=== PATIENT | female | born 1955 | race Caucasian/White ===

== ENCOUNTER 2018-04-01 09:27 | Outpatient (CLI) | payer OTHER | END 2018-04-01 09:28 | disposition home or self-care (01) | LOC: BICMAMMO 09:27 | PROVIDERS: ATTEND Family Medicine | DX: Z12.31 Encounter for screening mammogram for malignant neoplasm of breast (principal); M81.0 Age-related osteoporosis without current pathological fracture; R92.1 Mammographic calcification found on diagnostic imaging of breast; M85.89 Other specified disorders of bone density and structure, multiple sites | CPT/HCPCS: 77063; 77067; 77080 ==

== ENCOUNTER 2018-05-31 22:02 | Inpatient (IN) | payer OTHER ==
[2018-05-31 23:34] LABS: #Basophils 0.1 thou/uL (0.0-0.2); #Lymphocytes 1.5 thou/uL (1.20-3.40); #Monocytes 0.7 thou/uL (0.11-0.59); %Basophils 0.6 % (0.0-1.0); %Eosinophils 0.3 % (0.0-10.0); %Lymphocytes 12.3 % (21.0-51.0); %Monocytes 5.9 % (0.0-10.0); Hemoglobin 13.4 g/dL (12.0-16.0); Mean Corpuscular HGB CONC 34.6 g/dL (32.0-36.0); Mean Corpuscular Hemoglobin 29.9 pg (27.0-31.0); Mean Corpuscular Volume 86.6 fL (78.0-98.0); Mean Platelet Volume 7.8 fL (7.4-10.4); Platelet Count 203 thou/uL (130-400); RBC Distribution Width 12.2 % (11.5-14.5); Red Blood Cell (RBC) Count 4.48 mill/uL (4.20-5.40); White Blood Cell (WBC) Count 12.3 thou/uL (4.8-10.8)
--- NOTE | 2018-05-31 23:35 | RAD ---
LEFT FOREARM TWO VIEWS: 05/31/18 HISTORY: Left arm injury. FINDINGS: Extensively comminuted multiplane fracture of the distal radial shaft is present with one half shaft width medial displacement of the major distal fragment and apex medial angulation. Significant shorte jayde of the radius. Mildly displaced ulnar styloid avulsion. Radiocarpal joint is maintained although there is dissociation of the carpus from the ulna. IMPRESSION: Fracture dislocation distal left forearm as detailed above. POS: [facility]
--- NOTE | 2018-05-31 23:37 | RAD ---
CHEST ONE VIEW: 05/31/18 HISTORY: Arm fracture. Preop. FINDINGS: The cardiac silhouette magnified by projection. Pulmonary vasculature is unremarkable. Mediastinum is midline with postoperative change. No lobar consolidation or evidence of pneumothorax. IMPRESSION: No active cardiopulmonary abnormalities are demonstrated. POS: [facility]
[2018-05-31 23:41] LABS: Prothrombin Time 12.8 SEC (12.0-14.7)
[2018-05-31 23:55] LABS: ALT (SGPT) 18 U/L (8-55); AST (SGOT) 18 U/L (5-34); Alkaline Phosphatase 56 U/L (40-150); Anion Gap 17 mmol/L (10-20); BUN (Urea Nitrogen) 17 mg/dL (9.8-20.1); Bilirubin, Total 0.4 mg/dL (0.2-1.2); Calc. Creatinine Clearance 0 mL/min (70-130); Carbon Dioxide 15 mmol/L (23-31); Chloride 112 mmol/L (98-107); Estimated GFR-MDRD 67; Globulin 2.4 g/dL (2.4-3.5); Glucose 114 mg/dL (80-115); Potassium 3.9 mmol/L (3.5-5.1); Protein, Total 6.4 g/dL (6.0-8.3); Sodium 140 mmol/L (136-145)
[2018-05-31] MEDS ORDERED: traMADol HCl 50 MG TAB PO PRN (23:57)
[2018-05-31 23:58] LABS: CKMB 2.2 ng/mL (0-6.6)
[2018-05-31] MEDS ORDERED: Ondansetron HCl/PF 4 MG/2 ML Vial IVP PRN (23:58)
[2018-05-31] MEDS ORDERED: Dextrose 50% Abboject 50 ML SYRINGE SLOW IVP PRN (23:58)
[2018-05-31] MEDS ORDERED: Dextrose 5% in Water 1,000 ML IV PRN (23:58)
[2018-05-31] MEDS ORDERED: Ondansetron ODT 4 MG TAB PO PRN (23:58)
[2018-06-01] MEDS ORDERED: hydrALAZINE 20 MG/ML VIAL SLOW IVP PRN (00:03)
[2018-06-01 00:04] LABS: Troponin I Less than 0.010 ng/mL (< 0.028)
[2018-06-01] MEDS ORDERED: Morphine 4 MG/ML VIAL ONE (00:21)
[2018-06-01] MEDS: Sodium Chloride 0.9% 1,000 ML IV SCH ×2 (01:20→14:32)
[2018-06-01 01:54] VITALS: BMI 21.9
[2018-06-01] MEDS: traMADol HCl 50 MG TAB PO SCH ×4 (05:55→23:39)
[2018-06-01] MEDS: Ketorolac Tromethamine 30 MG/ML VIAL IVP SCH ×3 (05:57→17:20)
[2018-06-01] MEDS: Acetaminophen 1,000 MG in Premix Bag 1 BAG IVPB SCH ×3 (05:57→17:20)
--- NOTE | 2018-06-01 06:23 | HP ---
DATE OF ADMISSION: 06/01/2018 ATTENDING PHYSICIAN: Dr. Sumeet Licona. TRAUMA ACTIVATION: Not applicable. HISTORY OF PRESENT ILLNESS: This is a 63-year-old female who presented to [place] status post injury involving livestock. Per patient, she was closed in her cow pen, when cow got pushed up again st her hand/wrist trapping it between the pen and the cow. She had immediate onset of left upper ext remity deformity and pain. She was evaluated at an outside facility and transferred to [place] for an open distal left radius fracture. Orthopedic Surgery was notified and Trauma Services was as ked to admit. Upon my evaluation, patient has a chief complaint of left upper extremity pain. She d enies trauma or pain anywhere else. ALLERGIES: None. PAST MEDICAL HISTORY: Coronary artery disease, status post bypass, hypertension, hyperlipidemia, ost eoporosis, and GERD. PAST SURGICAL HISTORY: Significant for two-vessel CABG, hysterectomy, and x3. HOME MEDICATIONS: Include aspirin 81 mg p.o. daily, Boniva 150 mg 1 tab monthly, lisinopril 5 mg p.o . nightly, pantoprazole 40 mg b.i.d., Crestor 20 mg p.o. daily. SOCIAL HISTORY: Patient is a rancher and a medical office receptionist. She lives at home with her . She e ndorses occasional alcohol use. Denies tobacco or illicit drug use. FAMILY HISTORY: Significant for father with CAD, hypertension, and CVA. REVIEW OF SYSTEMS: A 10-point review of systems was obtained and essentially negative except as vignesh cated in the HPI. PHYSICAL EXAMINATION: VITAL SIGNS: Temperature 98.0, pulse 68, respiration rate 18, O2 sat 97% on room air, blood pressure 156/75. GENERAL: Well-developed female in no acute distress, resting in bed. HEAD: Normocephalic, atraumatic. EYES: Pupils are PERRL. Extraocular movements are intact. NECK: Supple. Trachea is midline. CHEST: Atraumatic, nontender to palpation. Normal work of breathing, symmetric rise. LUNGS: Clear to auscultation bilaterally. CARDIOVASCULAR: Regular rate and rhythm. GASTROINTESTINAL: Abdomen is atraumatic, soft, nontender, nondistended, bowel sounds are positive. MUSCULOSKELETAL AND BACK: Reported as being within normal limits. EXTREMITIES: Right upper extremity within normal limits. Bilateral lower extremities within normal limits. Left upper extremity wrist is grossly deformed with a 1 cm punctate laceration on the latera l aspect of the left wrist with venous ooze. NEUROLOGIC: GCS is 15. No focal deficit is noted. LABORATORY FINDINGS: WBC 12.3, hemoglobin 13.4, hematocrit 38.8, platelet count 203. INR is 1.0. C hemistry and cardiac enzymes are pending. EKG is pending. RADIOLOGIC FINDINGS: X-ray of the chest was without acute cardiopulmonary process and demonstrated e vidence of history of CABG. X-ray of the left forearm demonstrated distal left radial fracture with ulnar styloid avulsion fracture. ASSESSMENT: 1. Status post left upper extremity trauma secondary to livestock. 2. Open left distal radius fracture. 3. Acute traumatic pain. 4. History of coronary artery disease, status post bypass. 5. History of hypertension. 6. History of osteoporosis. 7. History of gastroesophageal reflux disease. PLAN: Admit to Trauma Services. Patient will be n.p.o. after midnight, I have spoken with Dr. Ingrid gil who plans for operative intervention tomorrow. Pain controlled via p.o. and IV analgesics. Pos toperative PT, OT. Deep venous thrombosis and gastritis prophylaxis as appropriate. Plan for admiss ion were discussed with the patient, who vocalized her understanding. All questions were answered at the time of this dictation. Trauma attending has been notified of admission.
[2018-06-01 06:25] LABS: #Lymphocytes 1.7 thou/uL (1.20-3.40); #Monocytes 0.8 thou/uL (0.11-0.59); #Neutrophils 7.1 thou/uL (1.40-6.50); %Basophils 0.4 % (0.0-1.0); %Eosinophils 0.2 % (0.0-10.0); %Lymphocytes 17.3 % (21.0-51.0); %Monocytes 8.3 % (0.0-10.0); %Neutrophils 73.7 % (42.0-75.0); Hemoglobin 12.2 g/dL (12.0-16.0); Mean Corpuscular HGB CONC 34.1 g/dL (32.0-36.0); Mean Corpuscular Hemoglobin 29.4 pg (27.0-31.0); Mean Corpuscular Volume 86.1 fL (78.0-98.0); Mean Platelet Volume 8.4 fL (7.4-10.4); Platelet Count 197 thou/uL (130-400); Red Blood Cell (RBC) Count 4.14 mill/uL (4.20-5.40); White Blood Cell (WBC) Count 9.7 thou/uL (4.8-10.8)
[2018-06-01 06:45] LABS: Anion Gap 12 mmol/L (10-20); BUN (Urea Nitrogen) 14 mg/dL (9.8-20.1); Calc. Creatinine Clearance 75 mL/min (70-130); Calcium 8.6 mg/dL (7.8-10.44); Carbon Dioxide 18 mmol/L (23-31); Chloride 112 mmol/L (98-107); Estimated GFR-MDRD 75; Glucose 108 mg/dL (80-115); Magnesium 1.9 mg/dL (1.6-2.6); Phosphorus 3.3 mg/dL (2.3-4.7); Potassium 3.9 mmol/L (3.5-5.1); Sodium 138 mmol/L (136-145)
[2018-06-01] MEDS: Famotidine 20 MG TAB PO SCH ×2 (07:33→20:06)
[2018-06-01] MEDS ORDERED: CEFAZOLIN/Water 2 GM/20 ML SYRINGE SLOW IVP SCH (07:45)
--- NOTE | 2018-06-01 08:14 | CON ---
DATE OF CONSULTATION: 06/01/2018 CHIEF COMPLAINT: Left arm pain. 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 Cattle started to fight and pinned her arm between a fence and a gate. She had deformity of t he left wrist and an open wound. She did not fall. She went to the emergency department initially [facility] and then was transferred over. She had x-rays which demonstrated a distal radius and uln a fracture. She has been admitted to the hospital overnight. She has received antibiotics. She has a splint. She is resting comfortably. No other injuries to speak of. She has been in good health recently. ALLERGIES: None. PAST MEDICAL HISTORY: Coronary artery disease, hypertension, hyperlipidemia, osteoporosis and GERD. PAST SURGICAL HISTORY: Approximately 12 years ago she had a 2-vessel coronary artery bypass graft, h ysterectomy and previous . HOME MEDICATIONS: Daily aspirin, Boniva, lisinopril, pantoprazole and Crestor. SOCIAL HISTORY: The patient denies tobacco, alcohol, or drug use. FAMILY MEDICAL HISTORY: Coronary artery disease, hypertension, and CVA. REVIEW OF SYSTEMS: Positive for left arm pain, otherwise negative 10-point review of systems. PHYSICAL EXAMINATION: VITAL SIGNS: Temperature is 98.2, pulse is 57, respiratory 14, blood pressure is 135/72. GENERAL: She is alert and oriented, no apparent distress, sitting upright. HEENT: Normocephalic, atraumatic. RESPIRATORY: Breathing comfortably. ABDOMEN: Soft, nontender, nondistended. MUSCULOSKELETAL: The patient's left arm has a splint in place. She is able to flex and extend the d igits. She has normal sensation distally in the fingertips. Two second capillary refill. Hand is warm and well perfused. IMAGES: X-rays demonstrate a metaphyseal distal radius fracture with ulnar styloid tip fracture. Julissa figueroa also has a possible scaphoid fracture. IMPRESSION: Left open distal radius and ulna fracture with possible scaphoid fracture. PLAN: At this point, the patient will need to go to the operating room for irrigation and debridemen t of her wounds and open reduction internal fixation of her distal radius. I will obtain better imag es of the scaphoid during surgery and treat the scaphoid with screw fixation if in fact, there is a f racture. She will stay on antibiotics for the next 24 hours. She will elevate the arm. She will eaton ve adequate pain control. She will be consented for surgery.
[2018-06-01] MEDS ORDERED: Fentanyl 100 MCG/2 ML VIAL ONE ×2 (10:24→11:09)
[2018-06-01] MEDS ORDERED: CEFAZOLIN/Water 2 GM/20 ML SYRINGE ONE (10:45)
[2018-06-01] MEDS ORDERED: HYDROmorphone 2 MG/ML VIAL ONE (12:21)
[2018-06-01] MEDS ORDERED: Meperidine HCl/PF 25 MG/ML VIAL SLOW IVP PRN (12:27)
[2018-06-01] MEDS ORDERED: Promethazine HCl 25 MG/ML VIAL SLOW IVP PRN (12:27)
[2018-06-01] MEDS ORDERED: Morphine Sulfate 2 MG/ML SYRINGE SLOW IVP PRN (12:27)
[2018-06-01] MEDS ORDERED: Promethazine HCl 25 MG/ML VIAL IM PRN (12:27)
[2018-06-01] MEDS ORDERED: HYDROmorphone 2 MG/ML VIAL SLOW IVP PRN (12:27)
[2018-06-01] MEDS ORDERED: Ondansetron HCl/PF 4 MG/2 ML Vial IVP PRN (12:27)
[2018-06-01] MEDS ORDERED: Ketorolac Tromethamine 30 MG/ML VIAL ONE (13:10)
--- NOTE | 2018-06-01 13:17 | RAD ---
LEFT WRIST TWO VIEWS: HISTORY: Intraoperative films. FINDINGS: The C-arm films show open reduction and internal fixation of a distal radial fracture, with plate and screws. Bony alignment appears satisfactory. An ulnar styloid fracture is seen. IMPRESSION: Open reduction and internal fixation of distal radial fracture. POS: [facility]
--- NOTE | 2018-06-01 13:39 | PRG ---
DATE OF SERVICE: 06/01/2018 SUBJECTIVE: Ms. Lo is a 63-year-old woman who suffered a distal left open distal radius and ulna fractures yesterday after being . She reports adequate pain control. She is n.p.o. pending marti rgery today. OBJECTIVE: VITAL SIGNS: This morning includes blood pressure 123/70, pulse 61, respiratory rate is 14, temperat ure 98.3 degrees Fahrenheit, oxygen saturation is 96% on room air. HEART: Reveals regular rate and rhythm, no murmurs or gallops auscultated. LUNGS: Clear to auscultation bilaterally. Her breathing is regular and unlabored. ABDOMEN: Soft, nontender, nondistended. EXTREMITIES: Reveals 2+ radial and pedal pulses bilaterally. She has a good capillary refill to the left fingers. NEUROLOGIC: Examination reveals no focal deficits present. LABORATORY DATA: Laboratory findings today include CBC with 9,700 white blood cells, hemoglobin and hematocrit at 12.2 and 35.7 respectively. Platelet count is 197,000. Metabolic profile; sodium 138, potassium is 3.9, chloride is 112, bicarbonate is 18, creatinine is 0.78, BUN is 14, glucose is 108, magnesium 1.9, phosphorus is 3.3. IMPRESSION: 1. Post-injury day #1, status post blunt force trauma by cattle. 2. Open distal left radius and ulna fractures. PLAN: The patient will be taken to the operating room today by Orthopedic Surgery for repair of the aforementioned fractures. The patient is otherwise hemodynamically and neurologically stable.
--- NOTE | 2018-06-01 13:46 | EKG ---
Test Reason : TRAUMA Blood Pressure : / mmHG Vent. Rate : 059 BPM Atrial Rate : 059 BPM P-R Int : 152 ms QRS Dur : 080 ms QT Int : 458 ms P-R-T Axes : 080 077 062 degrees QTc Int : 453 ms Sinus bradycardia Possible Left atrial enlargement Borderline ECG Confirmed by MARISSA DAVIS, TRENT ([id number]), movie editor LALA CHAVEZ ([id number]) on 06/01/2018 1:45:50 PM Referred By: MARTINE Confirmed By:TRENT ANN MD
--- NOTE | 2018-06-01 18:16 | OP ---
DATE OF PROCEDURE: 06/01/2018 OPERATION: 1. Open reduction internal fixation of left radius fracture. 2. Irrigation and debridement of open left radius fracture. PREOPERATIVE DIAGNOSIS: Open left distal radius and ulna fracture. POSTOPERATIVE DIAGNOSIS: Open left distal radius and ulna fracture. COMPLICATIONS: None. ESTIMATED BLOOD LOSS: Minimal. SURGEON: Skinny Albrecht M.D. COAL DRIER OPERATOR: Don Liu PA-C. IMPLANTS: Synthes 5-hole distal radius plate. INDICATIONS: Ms. Lo is a 63-year-old female who has injured her wrist. She has an open distal r adius fracture. She has been indicated for open reduction and internal fixation with irrigation of h er wounds. Risks have been reviewed in detail. She has elected to proceed with the operation. DESCRIPTION OF PROCEDURE: Ms. Lo was identified in the preoperative holding area. Her correct e xtremity was marked. She was carried to the operating room. She was positioned supine. General ane sthesia was induced. A multidisciplinary timeout was performed. The left upper extremity was preppe d and draped in the sterile fashion. We began the procedure with extension of the patient's traumatic wound over the radial styloid. This was a small 1 cm wound. We extended this proximally and distally. We thoroughly irrigated this wit h copious lavage. We trimmed the skin edges to healthy base. We had a clean and healthy appearing w ound at this point and closed this with a 3-0 nylon suture. At this point, we performed a FCR volar approach to the wrist. We dissected down through the subcuta neous tissues to the FCR tendon. The fascia was opened over the tendon. The sheath was opened dista lly and proximally. We then retracted the tendon and retracted the pronator quadratus muscle from th e radius. This exposed the underlying fracture. There was a comminuted and displaced distal radius fracture. At this point, we thoroughly irrigated and removed hematoma. We then reduced our fracture back into its anatomic position using appropriate K-wires and reduction clamps. We took x-ray image s confirming reduction. At this point, we placed a Synthes 5-hole distal radius plate along the vola r cortex of the bone. We placed multiple distal locking screws and proximal nonlocking screws. Once we had adequate fixation, again we took images. We thoroughly irrigated once more. We then closed with 0 Vicryl suture, 2-0 Vicryl suture and shelton for the skin. A sterile dressing and a splint wa s placed. The patient was taken to the recovery room at this point in good condition without complic ation.
[2018-06-01] MEDS: CEFAZOLIN/Water 2 GM/20 ML SYRINGE SLOW IVP SCH (18:31)
[2018-06-01] MEDS ORDERED: Ibuprofen 600 MG TAB PO SCH (22:15)
[2018-06-01] MEDS: Acetaminophen 500 MG TAB PO SCH (22:33)
[2018-06-02] MEDS: CEFAZOLIN/Water 2 GM/20 ML SYRINGE SLOW IVP SCH (03:21)
[2018-06-02 05:24] LABS: #Eosinphils 0.2 thou/uL (0.0-0.7); #Lymphocytes 1.8 thou/uL (1.20-3.40); #Monocytes 0.8 thou/uL (0.11-0.59); #Neutrophils 4.5 thou/uL (1.40-6.50); %Basophils 0.2 % (0.0-1.0); %Eosinophils 2.7 % (0.0-10.0); %Lymphocytes 24.3 % (21.0-51.0); %Monocytes 10.6 % (0.0-10.0); %Neutrophils 62.1 % (42.0-75.0); Hemoglobin 11.5 g/dL (12.0-16.0); Mean Corpuscular HGB CONC 34.4 g/dL (32.0-36.0); Mean Corpuscular Hemoglobin 30.3 pg (27.0-31.0); Mean Corpuscular Volume 88.2 fL (78.0-98.0); Mean Platelet Volume 8.1 fL (7.4-10.4); Platelet Count 165 thou/uL (130-400); RBC Distribution Width 12.2 % (11.5-14.5); Red Blood Cell (RBC) Count 3.79 mill/uL (4.20-5.40); White Blood Cell (WBC) Count 7.2 thou/uL (4.8-10.8)
[2018-06-02] MEDS: Ibuprofen 600 MG TAB PO SCH ×2 (05:26→14:21)
[2018-06-02] MEDS: Acetaminophen 500 MG TAB PO SCH ×2 (05:26→12:46)
[2018-06-02] MEDS: traMADol HCl 50 MG TAB PO SCH ×2 (05:27→12:46)
[2018-06-02 05:43] LABS: Anion Gap 10 mmol/L (10-20); BUN (Urea Nitrogen) 11 mg/dL (9.8-20.1); Calc. Creatinine Clearance 70 mL/min (70-130); Carbon Dioxide 19 mmol/L (23-31); Chloride 115 mmol/L (98-107); Estimated GFR-MDRD 70; Potassium 4.3 mmol/L (3.5-5.1); Sodium 140 mmol/L (136-145)
[2018-06-02 05:44] LABS: Calcium 8.1 mg/dL (7.8-10.44); Glucose 95 mg/dL (80-115); Magnesium 1.9 mg/dL (1.6-2.6); Phosphorus 3.1 mg/dL (2.3-4.7)
[2018-06-02] MEDS ORDERED: Senokot S 8.6-50 MG TAB PO SCH (09:00)
[2018-06-02] MEDS ORDERED: Polyethylene Glycol 3350 17 GM Packet PO SCH (09:00)
[2018-06-02 11:12] VITALS: BP 103/63; TEMP 98.3
[2018-06-02] MEDS ORDERED: Rosuvastatin 20 MG TAB PO SCH (21:00)
[2018-06-02] MEDS ORDERED: Lisinopril 5 MG TAB PO SCH ×2 (21:00)
--- NOTE | 2018-06-02 23:42 | DIS-2 ---
DATE OF ADMISSION: 05/31/2018 DATE OF DISCHARGE: 06/02/2018 TRAUMA TEAM: Cm Gay DO RESIDENT: Efrain Lam DO CONSULTATIONS: Chyna De Guzman. PROCEDURES: 1. Five-view chest x-ray: No active cardiopulmonary abnormalities are demonstrated. 2. Two-view x-ray of the right forearm: Shows extensively comminuted multiplanar fracture of the di stal radial shaft. Mildly displaced ulnar styloid avulsion. Radiocarpal joint is maintained. 3. Left wrist 2 view C-arm: Open reduction and internal fixation of distal radial fracture with bon y alignment, appearing satisfactory. 4. Open reduction and internal fixation of left radial fracture. 5. Irrigation and debridement of open left radial fracture. PRIMARY DIAGNOSIS: Open fracture of the left radius. DISCHARGE MEDICATIONS: 1. 1000 mg of Tylenol q.6 hours. 2. Ibuprofen 600 mg q.8 hours. 3. A 17 gram packet of MiraLax every day. 4. Senokot 1 tab p.o. b.i.d. DISCONTINUED MEDICATIONS: None. HISTORY OF PRESENT ILLNESS AND HOSPITAL COURSE: A 63-year-old female, who presented to the ER, statu s post injury involving open fracture of left radius involving livestock. The patient was stabilized and underwent an open reduction and internal fixation of that left ulnar fracture. The patient tole rated this procedure well. The patient's pain was well managed after the surgery. PT and OT saw the patient and patient progressed well towards goals. The patient remained neurovascularly intact, dis cristobal to the fracture site, at the time of discharge. LABORATORY DATA: At the time of discharge, CBC: White count 7.2, hemoglobin 11.5, hematocrit 33.5, MCV 88.2, platelets 165. Chemistry panel: Sodium 140, potassium 4.3, chloride 115, bicarbonate 19, BUN 11, creatinine 0.83, EGFR 70, glucose 95. DISPOSITION: Stable. DISCHARGE INSTRUCTIONS: 1. Location: Home. 2. Diet: No restrictions. 3. Activity: Nonweightbearing to the left upper extremity, return to work on 06/13/2018. 4. Followup: With Dr. Skinny Albrecht in [address] Bi Bahena in 1-[address] Gay saw this patient. We discussed the treatment and plan.
== END 2018-06-02 14:39 | disposition home or self-care (01) | DRG 512 ==
LOC: ERS 22:02 → SURG A 06-01 01:04
PROVIDERS: ADMIT Specialist; ATTEND Specialist
PROC: 0PSJ04Z Reposition Left Radius with Internal Fixation Device, Open Approach (ICD-10-PCS; principal; 2018-06-01)
DX: S52.502B Unspecified fracture of the lower end of left radius, initial encounter for open fracture type I or II (principal); S52.602B Unspecified fracture of lower end of left ulna, initial encounter for open fracture type I or II; G89.11 Acute pain due to trauma; I25.10 Atherosclerotic heart disease of native coronary artery without angina pectoris; I10 Essential (primary) hypertension; E78.5 Hyperlipidemia, unspecified; K21.9 Gastro-esophageal reflux disease without esophagitis; M81.0 Age-related osteoporosis without current pathological fracture; Z79.82 Long term (current) use of aspirin; Z79.899 Other long term (current) drug therapy; Z95.1 Presence of aortocoronary bypass graft; W23.0XXA Caught, crushed, jammed, or pinched between moving objects, initial encounter; Y93.K9 Activity, other involving animal care
CPT/HCPCS: 25560; 36415; 71045; 76001; 80048; 80053; 82553; 83735; 84100; 84484; 85025; 85610; 86850; 86900; 86901; 93005; 96374; C1713; G0390; G8978-GP-CK; G8979-GP-CJ; G8987-GO-CI; G8988-GO-CI; G8989-GO-CI; J0131; J1170; J1885; J2270; J2405; J3010

== ENCOUNTER 2019-05-05 09:38 | Outpatient (CLI) | payer OTHER ==
--- NOTE | 2019-05-05 10:22 | MMO ---
Bilateral MAMMO Bilat Screen [facility]. CLINICAL HISTORY: Patient is 64 years old and is seen for screening. The patient has no family history of breast cancer. The patient has no personal history of cancer. VIEWS: The views performed were: bilateral craniocaudal with tomosynthesis and bilateral mediolateral oblique with tomosynthesis. FILMS COMPARED: The present examination has been compared to a prior imaging study performed at [facility] on 04/01/2018. MAMMOGRAM FINDINGS: There are scattered fibroglandular densities. There are stable benign appearing calcifications seen in both breasts. There are no suspicious masses, suspicious calcifications, or new areas of architectural distortion. IMPRESSION: THERE IS NO MAMMOGRAPHIC EVIDENCE OF MALIGNANCY. A ROUTINE FOLLOW-UP MAMMOGRAM IN 1 YEAR IS RECOMMENDED. THE RESULTS OF THIS EXAM WERE SENT TO THE PATIENT. ACR BI-RADS Category 2 - Benign finding MAMMOGRAPHY NOTE: 1. A negative mammogram report should not delay a biopsy if a dominant of clinically suspicious mass is present. 2. Approximately 10% to 15% of breast cancers are not detected by mammography. 3. Adenosis and dense breasts may obscure an underlying neoplasm. Reported by: SPIKE DAO MD Electonically Signed: [id number]
== END 2019-05-05 09:39 | disposition home or self-care (01) ==
LOC: BICMAMMO 09:38
PROVIDERS: ATTEND Family Medicine
DX: Z12.31 Encounter for screening mammogram for malignant neoplasm of breast (principal)
CPT/HCPCS: 77063; 77067

== ENCOUNTER 2021-05-23 10:01 | Outpatient (CLI) | payer OTHER | END 2021-05-23 10:02 | disposition home or self-care (01) | LOC: BICMAMMO 10:01 | PROVIDERS: ATTEND Family Medicine | DX: Z12.31 Encounter for screening mammogram for malignant neoplasm of breast (principal); Z13.820 Encounter for screening for osteoporosis; Z78.0 Asymptomatic menopausal state; M85.89 Other specified disorders of bone density and structure, multiple sites | CPT/HCPCS: 77063; 77067; 77080 ==

== ENCOUNTER 2022-05-25 09:46 | Outpatient (CLI) | payer OTHER | END 2022-05-25 09:47 | disposition home or self-care (01) | LOC: BICMAMMO 09:46 | PROVIDERS: ATTEND Family Medicine | DX: Z12.31 Encounter for screening mammogram for malignant neoplasm of breast (principal) | CPT/HCPCS: 77063; 77067 ==

== ENCOUNTER 2023-06-18 09:38 | Outpatient (CLI) | payer OTHER | END 2023-06-18 09:39 | disposition home or self-care (01) | LOC: BICMAMMO 09:38 | PROVIDERS: ATTEND Family Medicine | DX: Z12.31 Encounter for screening mammogram for malignant neoplasm of breast (principal) | CPT/HCPCS: 77063; 77067 ==

== ENCOUNTER 2024-06-21 09:32 | Outpatient (CLI) | payer OTHER | END 2024-06-21 09:33 | disposition home or self-care (01) | LOC: BICMAMMO 09:32 | PROVIDERS: ATTEND Family Medicine | DX: Z12.31 Encounter for screening mammogram for malignant neoplasm of breast (principal) | CPT/HCPCS: 77063; 77067 ==

== ENCOUNTER 2025-08-21 09:22 | Outpatient (CLI) | payer OTHER | END 2025-08-21 09:23 | disposition home or self-care (01) | LOC: BICMAMMO 09:22 | PROVIDERS: ATTEND Family Medicine | DX: Z12.31 Encounter for screening mammogram for malignant neoplasm of breast (principal); Z80.3 Family history of malignant neoplasm of breast | CPT/HCPCS: 77063; 77067 ==